=== PATIENT | male | born 1975 | race Caucasian/White ===

== ENCOUNTER → 2020-09-09 | Outpatient (CLI) | payer OTHER ==
[~2020-09-09] MED LIST: NORVASC10 MG PO
== END ==
LOC: RT 12:30
DX: I48.91 Unspecified atrial fibrillation (principal); R94.31 Abnormal electrocardiogram [ECG] [EKG]
CPT/HCPCS: 93005

== ENCOUNTER → 2020-09-18 | Outpatient (CLI) | payer OTHER | LOC: RAD 09:27 | DX: R06.02 Shortness of breath (principal); R09.89 Other specified symptoms and signs involving the circulatory and respiratory systems | CPT/HCPCS: 71046 ==

== ENCOUNTER 2020-09-24 08:51 | Emergency (ER) | payer OTHER ==
[2020-09-24 10:07] LABS: HEMOGLOBIN 8.3 gm/dl (14.0-17.5); RED BLOOD COUNT 4.32 M/UL (4.20-5.50); WHITE BLOOD COUNT 7.8 K/UL (4.5-11.0)
[2020-09-24 10:48] LABS: BUN/CREATININE RATIO 10 (0-10)
[2020-09-24] MEDS ORDERED: NORVASC10 MG PO (11:16)
== END 2020-09-24 11:33 | disposition home or self-care (01) ==
LOC: ER1 08:51
PROVIDERS: Student in an Organized Health Care Education/Training Program
DX: I10 Essential (primary) hypertension (principal); D64.9 Anemia, unspecified; I25.10 Atherosclerotic heart disease of native coronary artery without angina pectoris; I48.91 Unspecified atrial fibrillation; F17.210 Nicotine dependence, cigarettes, uncomplicated; Z79.899 Other long term (current) drug therapy
CPT/HCPCS: 80053; 82550; 82553; 83874; 84484; 85025; 93005; 99284